=== PATIENT | female | born 1945 | race Caucasian/White ===

== ENCOUNTER 2016-08-01 09:28 | Observation (INO) | payer MEDICARE ==
[~2016-08-01] VITALS: Ht 162.6 cm; Wt 112.3 kg
[~2016-08-01 09:28] MED LIST: BACL20TA PO; LEVO25TA4 PO; OXYC1CAP PO; REGL10TA5 PO; SUCR1TAB PO; VENL75TA PO
[2016-08-01 09:45] VITALS: BP 114/54; PULSE 72; RESP 18; TEMP 98; O2SAT 94
[2016-08-01] MEDS ORDERED: MAGN400T2 PO (10:29)
[2016-08-01] MEDS ORDERED: CHLORHEXIDINE GLUCONATE 2 % 1 PACK (2 CLOTHS) TOPICAL PRN (10:30)
[2016-08-01] MEDS ORDERED: SODIUM CHLORID 0.9% 500 ML IV PRN (10:30)
[2016-08-01] MEDS ORDERED: INSULIN HUMAN REGULAR 1,000 UNITS/10 ML VIAL SQ PRN (10:30)
[2016-08-01] MEDS ORDERED: SODIUM CHLOR 0.9% 1000 ML INJ 1,000 ML IV SCH (10:30)
[2016-08-01] MEDS ORDERED: POVIDONE IODINE 5% (ANTISEPSIS KIT) 4 APPLICATIONS EACH NARE PRN (10:30)
[2016-08-01] MEDS ORDERED: METOPROLOL TARTRATE 25 MG TAB PO PRN (10:30)
[2016-08-01] MEDS ORDERED: VANCOMYCIN HCL 1000 MG ON-CALL/NS 250 ML IV SCH ×2 (10:30)
[2016-08-01] MEDS ORDERED: LACTATED RINGER'S 1000 ML IV PRN (10:30)
[2016-08-01] MEDS ORDERED: NEOSTIGMINE 3 MG/3 ML SYR IV ONE (12:00)
[2016-08-01] MEDS ORDERED: SODIUM CHLORID 0.9% 500 ML INJ 500 ML IV ONE (12:00)
[2016-08-01] MEDS ORDERED: ONDANSETRON HCL 4 MG/2 ML VIAL IV PUSH ONE (12:00)
[2016-08-01] MEDS ORDERED: PROPOFOL 200 MG/20 ML AMP IV ONE (12:00)
[2016-08-01] MEDS ORDERED: MIDAZOLAM HCL 2 MG/2 ML VIAL ONE (14:15)
[2016-08-01] MEDS ORDERED: FAMOTIDINE 20 MG/2 ML VIAL ONE (14:16)
[2016-08-01] MEDS ORDERED: ACETAMINOPHEN 1000 MG/100 ML VIAL IV ONE (14:18)
[2016-08-01] MEDS ORDERED: ARTIFICIAL TEARS OPTH OINT 3.5 APPLIC/3.5 GM TUBO ONE (14:18)
[2016-08-01] MEDS ORDERED: fentaNYL CITRATE 250 MCG/5 ML AMP ONE (14:19)
[2016-08-01] MEDS ORDERED: ceFAZolin 2 GM PREMIX 50 ML ONE (14:24)
[2016-08-01] MEDS ORDERED: THROMBIN (TOPICAL) 5,000 UNIT VIAL ONE (14:24)
[2016-08-01] MEDS ORDERED: GENTAMICIN SULFATE 80 MG/2 ML VIAL ONE (14:25)
[2016-08-01] MEDS ORDERED: methylPREDNISolone ACETATE 40 MG/ML VIAL ONE (14:25)
[2016-08-01] MEDS ORDERED: GELFOAM SIZE 100 ONE (14:25)
[2016-08-01] MEDS ORDERED: BUPIVACAINE/EPINEPHRINE 0.5% PF 30 ML VIAL ONE (14:25)
[2016-08-01] MEDS ORDERED: NS + KCL 20 MEQ INJ 1,000 ML IV SCH (16:31)
[2016-08-01] MEDS ORDERED: OXYC1CAP PO (16:35)
[2016-08-01] MEDS ORDERED: ACETAMINOPHEN/HYDROcodone 325 MG/10 MG TAB PO PRN ×3 (16:45→20:45)
[2016-08-01] MEDS ORDERED: MORPHINE SULFATE 4 MG/ML INJ IV PUSH PRN ×4 (16:45→20:45)
[2016-08-01] MEDS ORDERED: ACETAMINOPHEN 325 MG TAB PO PRN ×2 (16:45→20:45)
[2016-08-01] MEDS ORDERED: SODIUM CHLORIDE 0.9% FLUSH 5 ML FLUSH IVF PRN ×2 (16:45→20:45)
--- NOTE | 2016-08-01 17:02 | PD.OP ---
Operative Report Date of Surgery: Aug 01, 2016 Preoperative Diagnosis: L5-S1 disk herniation Postoperative Diagnosis: L5-S1 disk herniation Procedure: Left L5-S1 hemilaminectomy and microdiscectomy Anesthesia: general Surgeon: Jason Purcell Flavor Extractor(s): Krystal Boo Operation and Findings: INDICATIONS FOR THE SURGICAL PROCEDURE Ms Torres is a 71 year-old female who presented with intractable mechanical back pain and clinical evidence of left S1 lower extremity radiculopathy. SHe was found to have a large disk herniation and extrusion significant stenosis with significant mass effect on the neural structures which correlated with her clinical symptoms. The patient has failed maximum nonsurgical management including multiple modalities of conservative treatment as well as pain management interventions by an interventional pain specialist. A surgical decompression were indicated as a last resort. The [id number] details of the procedure, indications, alternatives, risks and potential complications were fully discussed with the patient. The patient fully understood. All the questions were answered. No guarantees were given. The patient voiced requesting the procedure and signed informed consents. He was offered the alternative of delaying the procedure and continuing with nonsurgical management. DETAILS OF THE SURGICAL PROCEDURE After the induction of general anesthesia, endotracheal intubation was performed. A Posey catheter, bilateral RAE hose and sequential compression devices were placed and kept throughout the procedure. The patient was positioned prone on a Ollie table over a Eb frame. All pressure points were carefully padded with eggcrate mattress. The eyes were tapped shut after ointment was applied by the anesthesiologist to prevent corneal abrasion. A Abisai hugger was placed over the exposed lower body to maintain control of the core body temperature. The lower lumbar region was prepped and draped in the usual sterile fashion. A spinal needle was placed for localization and an x- ray performed with a C-arm. A skin incision was made in the midline over the spinous processes L5-S1 with a #10 blade. Small subcutaneous bleeders were controlled with a bipolar and the dissection was carried out through the lumbar fascia exposing the spinous processes. A subperiosteal dissection was performed with a Feldman elevator and a Bovie over the L5-S1 spinous process lamina and facets. A microdiscectomy self- retaining retractor was placed on the incision and an x-ray was obtained with an instrument placed underneath the lamina. At this point in the procedure the operating microscope was draped in the usual sterile fashion and brought to the field. The rest of the surgical procedure was performed using microsurgical dissection technique with exception of the closure. Once the level was confirmed, a decompressive laminectomy was performed at L5- S1 on the left side, using the TPS drill with an AM-8 drill bit. A medial facetectomy was performed and the superior free border of the ligamentum flavum was dissected with a ligament dissector and removed with a thin footplate 2 mm Kerrison The medial facetectomy allowed me to expose the left S1 nerve root, which was identified and followed towards its exit in the foramen. Epidural veins located laterally to the dural sac were coagulated with a bipolar and incised with microscissors. Gentle medial retraction of the dural sac allowed inspection of the disc space. The patient had a disc herniation, causing mass effect over the exiting nerve root. The annulus fibrosus of the disc was coagulated with the bipolar and incised with an 11 blade. The extruded disc was carefully dissected from the surrounding tissue and removed with pituitary forceps. Then, a microdiscectomy was carried out in the standard fashion using straight and up-biting pituitary forceps. A good decompression of the dural sac and nerve root was achieved. The exit of the nerve root was inspected for residual disc fragments and hemostasis was secured with the bipolar. The incision was irrigated with a large amount of saline solution. A Valsalva maneuver failed to show any cerebrospinal fluid leak or bleeding. The decompression was assessed again and found to be satisfactory. 4m of Depomedrol was left over the epidural space. The incision was then closed in layers. The fascia was closed with 0 Vicryl sutures in an interrupted fashion. The superficial fascia was closed with 0 Vicryl sutures. The fascia was infiltrated with 0.5% Marcaine with epinephrine 1:100,000 dilution. The subcutaneous tissue was irrigated then closed with 0 Vicryl and 3-0 Vicryl. The skin was closed with 4-0 running subcuticular Vicryl. Dermabond was applied to the skin. A sterile dressing was applied. At the end of the procedure, the sponge, needle and instrument counts were all correct. Estimated blood loss was less than 50 cc. No blood transfusion was given. No intraoperative complications occurred. The patient received prophylactic antibiotics. The patient was then extubated and transferred to the recovery room in stable condition. Jason Purcell MD Aug 01, 2016 17:02
[2016-08-01] MEDS ORDERED: *HYDROmorphone PF 1 MG VIAL PERIprocedural Use ONLY ONE (17:04)
--- NOTE | 2016-08-01 17:44 | RADRPT ---
EXAM DATE/TIME: 08/01/2016 14:38 [facility] COMPARISON: No previous studies available for comparison. INDICATIONS : Level Localization L5,S1. MEDICAL HISTORY : None. SURGICAL HISTORY : None. ENCOUNTER: Initial ACUITY: 1 day PAIN SCORE: Non-responsive. LOCATION: Lumbar spine. FINDINGS: Single lateral view of the lower lumbar region was recorded digitally in the operating room using C-a rm. Localization probe in place. CONCLUSION: Intraoperative image. Mina Jones MD on August 01, 2016 at 17:42 Board Certified Radiologist. This report was verified electronically.
[2016-08-01] MEDS ORDERED: DO NOT ADM ANY ANTICOAGULANT DRUGS PRN (17:50)
[2016-08-01] MEDS: VENLAFAXINE HCL XR 75 MG CAP PO SCH (18:00)
[2016-08-01] MEDS: SUCRALFATE 1 GM TAB PO SCH (18:39)
[2016-08-01] MEDS: METOCLOPRAMIDE HCL 10 MG TAB PO SCH (18:39)
[2016-08-01 20:00] VITALS: BP 122/54; PULSE 67; RESP 18; TEMP 97.7; O2SAT 96
[2016-08-01] MEDS: DOCUSATE SODIUM 100 MG CAP PO SCH (21:00)
[2016-08-01] MEDS ORDERED: DOCUSATE SODIUM 100 MG CAP PO SCH (21:00)
[2016-08-01] MEDS: SODIUM CHLORIDE 0.9% FLUSH 5 ML FLUSH IVF SCH (21:00)
[2016-08-01] MEDS ORDERED: SODIUM CHLORIDE 0.9% FLUSH 5 ML FLUSH IVF SCH (21:00)
[2016-08-01] MEDS: NS + KCL 20 MEQ INJ 1,000 ML IV SCH (21:54)
[2016-08-01] MEDS: ceFAZolin 2 GM PREMIX 50 ML IV SCH (21:55)
[2016-08-01] MEDS: ACETAMINOPHEN/HYDROcodone 325 MG/10 MG TAB PO PRN (22:03)
[2016-08-01] MEDS ORDERED: ceFAZolin 2 GM PREMIX 50 ML IV SCH ×2 (23:00)
[2016-08-01] MEDS ORDERED: MAGNESIUM OXIDE 400 MG TAB PO SCH (23:00)
[2016-08-02 00:57] VITALS: BP 111/58; PULSE 71; RESP 18; TEMP 98.1; O2SAT 97
[2016-08-02 02:38] VITALS: O2SAT 93
[2016-08-02 04:33] VITALS: BP 122/56; PULSE 68; RESP 18; TEMP 98.4; O2SAT 98
[2016-08-02] MEDS ORDERED: LEVOTHYROXINE SODIUM 25 MCG TAB PO SCH (06:00)
[2016-08-02] MEDS: METOCLOPRAMIDE HCL 10 MG TAB PO SCH (06:18)
[2016-08-02] MEDS: ceFAZolin 2 GM PREMIX 50 ML IV SCH (06:19)
[2016-08-02] MEDS: NS + KCL 20 MEQ INJ 1,000 ML IV SCH (06:19)
[2016-08-02 08:13] VITALS: BP 114/61; PULSE 73; RESP 18; TEMP 97.9; O2SAT 94
[2016-08-02] MEDS ORDERED: PANTOPRAZOLE SOD 40 MG DELAYED RELEASE TAB PO SCH ×2 (09:00)
[2016-08-02] MEDS: DOCUSATE SODIUM 100 MG CAP PO SCH (09:00)
[2016-08-02] MEDS ORDERED: BACLOFEN 20 MG TAB PO SCH (09:00)
[2016-08-02] MEDS: SODIUM CHLORIDE 0.9% FLUSH 5 ML FLUSH IVF SCH (09:00)
--- NOTE | 2016-08-02 09:35 | HHI.DCPOC ---
Discharge Care Plan Diagnosis: (1) S/P lumbar laminectomy Goals to Promote Your Health * To prevent worsening of your condition and complications * To maintain your health at the optimal level Directions to Meet Your Goals Take your medications as prescribed Follow your dietary instruction Follow activity as directed Keep your appointments as scheduled Take your immunizations and boosters as scheduled If your symptoms worsen call your PCP, if no PCP go to Urgent Care Center or Emergency Room Smoking is Dangerous to Your Health. Avoid second hand smoke Call the 24-hour hour crisis hotline for domestic abuse at Emely Landers Aug 02, 2016 09:34
--- NOTE | 2016-08-02 09:38 | HHI.DS ---
Discharge Summary Admission Date Aug 01, 2016 at 20:44 Discharge Date: Aug 02, 2016 Admitting Diagnosis s/p lumbar laminectomy (1) S/P lumbar laminectomy ICD Code: Z98.890 Brief History Ms Torres is a 71 year-old female who presented with intractable mechanical back pain and clinical evidence of left S1 lower extremity radiculopathy. SHe was found to have a large disk herniation and extrusion significant stenosis with significant mass effect on the neural structures which correlated with her clinical symptoms. The patient has failed maximum nonsurgical management including multiple modalities of conservative treatment as well as pain management interventions by an interventional pain specialist. A surgical decompression were indicated as a last resort. Imaging Last Impressions Lumbar Spine X-Ray 08/01/16 0000 Signed Impressions: Service Date/Time: Monday, August 01, 2016 14:38 - CONCLUSION: Intraoperative image. Mina Jones MD Hospital Course Ms. Torres underwent a left L5-S1 hemilaminectomy and microdiscectomy on Aug 01, 2016. Her surgery went well without complications. She reports improvement of her radicular pain with residual paresthesias. She is discharged home in stable conditions. Wound care and activity restrictions were discussed. Pt Condition on Discharge: Stable Discharge Disposition: Discharge Home Discharge Instructions DIET: Follow Instructions for: Heart Healthy Diet ACTIVITIES You can perform: Weight Bearing As Stacey ADDITIONAL Activity Instructio: Avoid strenuous activities, avoid heavy lifting, bending, twisting, pushing, pulling or any other activities that will place stress on the lumbar spine. Avoid falls. Wear back brace when out of bed. Changed Medications: Oxycodone (Oxycodone) 5 Mg Cap 10 MG PO Q8HR PRN PAIN #90 Ref 0 CAP (Changed from: 5 MG; Q3HR) Continued Medications: Baclofen (Baclofen) 20 Mg Tab 1 TAB PO DAILY #62 Levothyroxine (Levothyroxine) 25 Mcg Tab 1 TAB PO DAILY thyroid #93 Magnesium Oxide (Magnesium Oxide) 400 Mg Tab 400 MG PO BID Nutritional Supplement Ref 0 TAB Metoclopramide (Reglan) 10 Mg Tab 10 MG PO TIDAC motility Ref 0 TAB Sucralfate (Sucralfate) 1 Gm Tab 1 TAB PO TID #120 Venlafaxine (Effexor) 75 Mg Tab 1 TAB PO DAILY #31 Emely Landers Aug 02, 2016 09:38
[2016-08-02] MEDS: VENLAFAXINE HCL XR 75 MG CAP PO SCH (09:42)
[2016-08-02] MEDS: SUCRALFATE 1 GM TAB PO SCH (09:42)
[2016-08-02] MEDS: ACETAMINOPHEN/HYDROcodone 325 MG/10 MG TAB PO PRN (09:44)
== END 2016-08-02 12:00 | disposition home or self-care (01) ==
LOC: HSDC 09:28 → N05A 20:44
PROVIDERS: ADMIT Neurological Surgery; ATTEND Neurological Surgery
DX: M51.17 Intervertebral disc disorders with radiculopathy, lumbosacral region (principal); E03.9 Hypothyroidism, unspecified; N18.3 Chronic kidney disease, stage 3 (moderate); F32.9 Major depressive disorder, single episode, unspecified; K21.9 Gastro-esophageal reflux disease without esophagitis; E66.9 Obesity, unspecified; Z68.41 Body mass index [BMI] 40.0-44.9, adult
CPT/HCPCS: 00630; 63030; 72020; 76000; 97162; G0378; G8987; G8988; J0131; J0690; J1030; J1170; J1580; J2250; J2405; J2710; J3010; J3370; J3480; J7040; J7050; J7120; L0627